=== PATIENT | female | born 1985 | race Caucasian/White ===

== ENCOUNTER 2023-07-26 09:03 | Outpatient (CLI) | payer OTHER, SELFPAY | END 2023-07-26 09:04 | disposition home or self-care (01) | PROVIDERS: Visit Provider Physician Assistant | DX: Z01.419 Encounter for gynecological examination (general) (routine) without abnormal findings (principal); Z13.6 Encounter for screening for cardiovascular disorders; Z13.1 Encounter for screening for diabetes mellitus; Z13.29 Encounter for screening for other suspected endocrine disorder; Z13.21 Encounter for screening for nutritional disorder; Z12.4 Encounter for screening for malignant neoplasm of cervix | CPT/HCPCS: 80061; 82947; 84443 ==